=== PATIENT | male | born 1955 | race Caucasian/White ===

== ENCOUNTER 2022-03-06 09:09 | Outpatient (CLI) | payer MEDICARE, OTHER, SELFPAY | END 2022-03-06 09:10 | disposition home or self-care (01) | LOC: AMB 04-01 21:16 | PROVIDERS: Visit Provider Family Medicine | DX: S49.92XA Unspecified injury of left shoulder and upper arm, initial encounter (principal); W01.0XXA Fall on same level from slipping, tripping and stumbling without subsequent striking against object, initial encounter; Y93.K1 Activity, walking an animal; Y92.414 Local residential or business street as the place of occurrence of the external cause | CPT/HCPCS: A0425; A0427 ==

== ENCOUNTER 2024-06-05 05:52 | Outpatient (CLI) | payer MEDICARE, BC, OTHER, SELFPAY | END 2024-06-05 05:53 | disposition home or self-care (01) | LOC: AMB 06-09 08:56 | PROVIDERS: Visit Provider Student in an Organized Health Care Education/Training Program | DX: F03.90 Unspecified dementia, unspecified severity, without behavioral disturbance, psychotic disturbance, mood disturbance, and anxiety (principal); R41.82 Altered mental status, unspecified; F91.9 Conduct disorder, unspecified | CPT/HCPCS: A0425; A0427 ==

== ENCOUNTER 2024-10-20 06:43 | Outpatient (CLI) | payer MEDICARE, BC, SELFPAY | END 2024-10-20 06:44 | disposition home or self-care (01) | PROVIDERS: Visit Provider Student in an Organized Health Care Education/Training Program | DX: S09.93XA Unspecified injury of face, initial encounter (principal); S80.211A Abrasion, right knee, initial encounter; W19.XXXA Unspecified fall, initial encounter; Y92.129 Unspecified place in nursing home as the place of occurrence of the external cause | CPT/HCPCS: A0998 ==

== ENCOUNTER 2024-10-20 07:58 | Outpatient (CLI) | payer MEDICARE, BC, SELFPAY | END 2024-10-20 07:59 | disposition home or self-care (01) | PROVIDERS: Visit Provider Student in an Organized Health Care Education/Training Program | DX: S09.93XA Unspecified injury of face, initial encounter (principal); R22.0 Localized swelling, mass and lump, head; W19.XXXA Unspecified fall, initial encounter; Y92.129 Unspecified place in nursing home as the place of occurrence of the external cause | CPT/HCPCS: A0425; A0427 ==

== ENCOUNTER 2024-10-21 04:38 | Outpatient (CLI) | payer MEDICARE, BC, SELFPAY | END 2024-10-21 04:39 | disposition home or self-care (01) | PROVIDERS: Visit Provider Family Medicine | DX: R41.82 Altered mental status, unspecified (principal) | CPT/HCPCS: A0425; A0427 ==